=== PATIENT | male | born 1980 | race Caucasian/White ===

== ENCOUNTER 2021-02-13 16:12 | Emergency (ER) | payer OTHER ==
[~2021-02-13 16:12] MED LIST: IBUPROFEN800 MG PO; PERCOCET 5-3251 EACH PO; ROBAXIN750 MG PO
[2021-02-13] MEDS ORDERED: CYCLOBENZAPRINE10 MG PO (17:10)
[2021-02-13] MEDS ORDERED: NAPROXEN500 MG PO (17:10)
== END 2021-02-13 17:46 | disposition home or self-care (01) ==
LOC: FER 16:12
DX: S16.1XXA Strain of muscle, fascia and tendon at neck level, initial encounter (principal); F17.210 Nicotine dependence, cigarettes, uncomplicated; X58.XXXA Exposure to other specified factors, initial encounter
CPT/HCPCS: 72040; J1885

== ENCOUNTER 2022-02-07 07:28 | Emergency (ER) | payer OTHER ==
[~2022-02-07 07:28] MED LIST changes: +CYCLOBENZAPRINE10 MG PO; +NAPROXEN500 MG PO
== END 2022-02-07 08:26 | disposition home or self-care (01) ==
LOC: FER 07:28
DX: T15.92XA Foreign body on external eye, part unspecified, left eye, initial encounter (principal); F17.210 Nicotine dependence, cigarettes, uncomplicated
CPT/HCPCS: 99283